=== PATIENT | male | born 1950 | race African-American/Black ===

== ENCOUNTER → 2017-08-14 | Day surgery (SDC) | payer MEDICARE, OTHER ==
[~2017-08-14] MED LIST: ACIDOPHILUS1 EAC4 PO; ASPIRIN81 MG PO; ATORVASTATIN CA10 MG PO; BETAMETHASONE DISODIUM PHOS 6 MG/ML VIAL ONE; BISACODYL5 MG PO; BUPIVACAINE HCL 0.5% INJ 30 ML VIAL INJ ONE; BYSTOLIC10 MG PO; CLOPIDOGREL75 MG PO; COLLAGENASE1 EACH TOP; COMBIVENT RESPIM4 GM IH; DEXAMETHASONE SOD PHOS INJ 4 MG/ML VIAL ONE; DOCUSATE SODIU100 MG PO; FENTANYL CITRATE/PF 100MCG/2 ML INJ ONE; FLOMAX0.4 MG PO; FLUCONAZOLE100 MG PO; FUROSEMIDE40 MG PO; GERI-HYDROLAC140 GM TOP; GLUCERNA237 ML PO; IPRATROPIU0.2 MG/1 M NEB; LIDOCAINE HCL 2% LOCAL INJ 5 ML SDV VIAL INJ ONE; LOSARTAN POTAS100 MG PO; METRONIDAZ500 MG/100 IV; METRONIDAZOLE500 MG PO; MULTIVITAMINS1 EAC7 PO; MUPIROCIN22 GM TOP; NEOSTIGMINE 1 MG/ML 10ML VIAL ONE; NICOTINE PATCH1 EAC1 PO; NOVOLOG100 UNIT/1 SQ; ONDANSETRON HCL INJ 2 MG/ML VIAL ONE; PANTOPRAZOLE SO40 MG PO; PHENYLEPHRINE HCL 1% 10 MG/ML VIAL ONE; POLYETHYLENE GL17 GM PO; POTASSIUM CHLO20 ME1 PO; PROPOFOL IV EMULSION 10 MG/ML 20 ML VIAL ONE; SENNA LAX8.6 MG PO; SEVOFLURANE INHAL SOLN 250 ML PEN BTL ONE; VANCOMYCIN HCL500 MG PO; VITAMIN D1000 UNI1 PO
--- NOTE | 2017-08-14 10:09 | Operative Report ---
DATE OF PROCEDURE: August 14, 2017 PREOPERATIVE DIAGNOSES 1. Abscess, right foot. 2. Osteomyelitis, right foot. 3. Gangrene, right foot. 4. Equinus deformity, right foot. POSTOPERATIVE DIAGNOSES 1. Abscess, right foot. 2. Osteomyelitis, right foot. 3. Gangrene, right foot. 4. Equinus deformity, right foot. OPERATIVE PROCEDURES 1. Incision and drainage of the right foot. 2. Chopart's amputation, right foot. 3. Extensor tendon transfer, right foot. 4. Achilles tendon lengthening, right foot. 5. Rotational flap closure, right foot. 6. Intraoperative use of fluoroscopy. 7. Trigger point shot of cortisone. 8. Application of posterior splint. ANESTHESIA: General. HEMOSTASIS: Pneumatic thigh tourniquet at 350 mmHg. PROCEDURE IN DETAIL: The patient was taken into the operating room and placed on the operating room table in the supine position. Following induction of general anesthesia by the anesthesiologist, Webril wraps were placed around the patient's right thigh followed by application of right thigh tourniquet. The right lower extremity was then prepped and draped in the usual aseptic manner. The following procedure was then performed: PROCEDURE #1: Incision and drainage of right foot. Attention was directed to the distal aspect of the right foot where a curvilinear incision was performed overlying the necrotic tissue. Purulent drainage was noted. It was I and D'd until good viable tissue was achieved. Secondary to the amount of infection and gangrenous flap, a racquet-shaped incision was performed overlying the dorsal and plantar aspect of the right foot overlying viable tissue. A Chopart's amputation was then performed. The soft tissue was resected free from its bone attachments utilizing a periosteal elevator and meticulous dissection. The talonavicular and calcaneal joint was then clearly visualized, and at this point, the forefoot was disarticulated and sent for pathological analysis. PROCEDURE #3: Extensor tendon transfer. The tibialis anterior tendon was then isolated and rerouted through the anterior interosseous membrane down to the dorsal aspect of the right talus utilizing a G2 anchor. The tibialis anterior tendon was then anchored into the talus to allow for proper dorsiflexion of the foot secondary to the contracture of the foot still noted. PROCEDURE #4: Achilles tendon lengthening was performed. Attention was then redirected back to the right lower extremity where 3 stab incisions were performed 2 cm from its insertion site and 2 cm apart. The most distal and most proximal stab incisions were entered through the midline and exited laterally. The middle stab incision was entered through the midline of the tendon and exited medially. The foot was then dorsiflexed past 90 degrees, and the Achilles tendon was felt to be lengthened. PROCEDURE #5: Intraoperative use of fluoroscopy was then used to make sure proper resection of bone was achieved. PROCEDURE #6: Rotational flap closure. Secondary to the limited viable tissue on the bottom, part of the calcaneus had to be resected via the use of an oscillating saw to allow for proper closure with minimal skin tension of the flap. The incision was then carried more plantarly medially and plantarly laterally to create a more viable flap to allow for proper closure with minimal skin tension. At this point, the thigh tourniquet was then released. All ligators or pumpers were both bovied or tied as necessary. The plantar flap was then dorsally displaced. Utilizing 2-0 Vicryl and 3-0 nylon, the flap was then reapproximated with minimal skin tension. PROCEDURE #7: Trigger point shot of cortisone was then given to the posterior aspect of the right foot, and approximately 15-20 mL of 0.5% plain Marcaine were used to achieve local anesthesia to the above-mentioned surgical area. A sterile dressing was applied. PROCEDURE #8: Application of posterior splint. A properly placed posterior splint was then applied keeping the foot at 90 degrees with respect to the leg to try to prevent any postop complications. Patient was then transferred from the OR to the recovery room with vital signs stable and neurovascular status intact. No intraoperative complications were encountered. Blood loss from the surgery was minimal. The patient and the patient's understand if not responsive may need to have a below knee amputation. Job#: [id number] RI
--- NOTE | 2017-08-14 10:36 | Diagnostic Imaging Report ---
PROCEDURE:X-RAY RIGHT FOOT, TWO VIEWS COMPARISON:None. INDICATIONS:STATUS POST RIGHT FOOT SURGERY FINDINGS: See conclusion. CONCLUSION: Frontal and lateral radiographs of the right foot with osseous detail degraded by overlying cast material show postsurgical changes related to right lower extremity amputation at the level of the mid foot. The entire talus and posterior two thirds of the calcaneus are intact. Atherosclerotic vascular calcifications. Surgical anchor within the talus. No gross soft tissue defect. Dictated by: Kvng Vincent M.D. on 08/14/2017 at 10:45 Electronically approved by: Kvng Vincent M.D. on 08/14/2017 at 10:45
== END | disposition home or self-care (01) ==
LOC: OR 06:12 → EDBD 07:00
PROVIDERS: ATTEND Podiatrist Foot Surgery
DX: M86.9 Osteomyelitis, unspecified (principal); I96 Gangrene, not elsewhere classified; L02.611 Cutaneous abscess of right foot; M21.6X1 Other acquired deformities of right foot; E11.9 Type 2 diabetes mellitus without complications; K21.9 Gastro-esophageal reflux disease without esophagitis; N40.0 Benign prostatic hyperplasia without lower urinary tract symptoms; I10 Essential (primary) hypertension; F03.90 Unspecified dementia, unspecified severity, without behavioral disturbance, psychotic disturbance, mood disturbance, and anxiety; F17.210 Nicotine dependence, cigarettes, uncomplicated; Z79.82 Long term (current) use of aspirin; Z79.02 Long term (current) use of antithrombotics/antiplatelets; Z79.4 Long term (current) use of insulin
CPT/HCPCS: 14040; 27691; 28800; 36415; 73620; 82948; 88307; 88311; J0720; J1100; J2001; J2370; J2405; J2710; 88305